=== PATIENT | female | born 1940 | race Caucasian/White ===

== ENCOUNTER 2016-05-06 12:14 | Outpatient (CLI) | payer MEDICARE, OTHER | END 2016-05-06 12:15 | disposition home or self-care (01) | DX: N64.52 Nipple discharge (principal) ==

== ENCOUNTER 2016-06-14 21:04 | Emergency (ER) | payer MEDICARE, OTHER | END 2016-06-14 23:38 | disposition home or self-care (01) | DX: J20.9 Acute bronchitis, unspecified (principal); I10 Essential (primary) hypertension ==

== ENCOUNTER 2016-06-15 23:54 | Emergency (ER) | payer MEDICARE, OTHER ==
[2016-06-16] MEDS ORDERED: LEVALBUTEROL 1.25 MG INH STA (00:22)
[2016-06-16] MEDS ORDERED: BENZONATATE 100 MG CAPSULE PO STA (00:22)
[2016-06-16] MEDS ORDERED: BENZONATATE 100 MG CAPSULE PO ONE (00:25)
[2016-06-16] MEDS ORDERED: LEVALBUTEROL 1.25 MG INH ONE (00:29)
== END 2016-06-16 01:31 | disposition home or self-care (01) ==
DX: J20.9 Acute bronchitis, unspecified (principal); T48.6X5A Adverse effect of antiasthmatics, initial encounter; R00.0 Tachycardia, unspecified; I10 Essential (primary) hypertension
CPT/HCPCS: 93005; 94640; 99283; A9270

== ENCOUNTER 2016-06-23 11:30 | Outpatient (CLI) | payer MEDICARE, OTHER | END 2016-06-23 11:31 | disposition home or self-care (01) | DX: B35.1 Tinea unguium (principal) ==

== ENCOUNTER 2016-07-07 11:22 | Outpatient (CLI) | payer MEDICARE, OTHER | END 2016-07-07 11:23 | disposition home or self-care (01) | DX: M25.511 Pain in right shoulder (principal); M19.011 Primary osteoarthritis, right shoulder ==

== ENCOUNTER 2016-10-20 05:35 | Emergency (ER) | payer MEDICARE, OTHER ==
[2016-10-20] MEDS ORDERED: SODIUM CHLORIDE 0.9% 1,000 ML IV ONE (05:51)
[2016-10-20] MEDS ORDERED: IOPAMIDOL-300 100 ML VIAL IVP ONE (07:47)
== END 2016-10-20 09:59 | disposition home or self-care (01) ==
DX: K02.9 Dental caries, unspecified (principal); R19.7 Diarrhea, unspecified; R10.84 Generalized abdominal pain; I10 Essential (primary) hypertension; E78.00 Pure hypercholesterolemia, unspecified; M19.90 Unspecified osteoarthritis, unspecified site
CPT/HCPCS: 36415; 74177; 80053; 81003; 83605; 83690; 85025; 85610; 85730; 87045; 87046; 87493; 99283; 99284; Q9967

== ENCOUNTER 2016-12-16 08:22 | Outpatient (CLI) | payer MEDICARE, OTHER ==
--- NOTE | 2016-12-16 12:54 | Ultrasound Report ---
MESENTERIC ARTERIAL DUPLEX: 12/16/2016 CLINICAL INDICATION: Bloody diarrhea. TECHNIQUE: Real-time sonographic vascular imaging was performed by the asset management lead through the mesenteric arteries utilizing both color-flow and Doppler flow analysis. Multiple ambulatory service representative static images were saved for review. PROX AORTA 99 cm/s CELIAC AXIS Origin:129 cm/s HEPATIC ARTERY 106 cm/s Prox: 144 cm/s SPLENIC ARTERY 147 cm/s Mid: 164 cm/s Dist: 131 cm/s SMA Origin: 158 cm/s JESSIE Origin: 138 cm/s Prox: 268 cm/s Prox: 173 cm/s Mid: 159 cm/s Mid: 117 cm/s Dist: 145 cm/s Dist: NOT SEEN cm/s FINDINGS: The abdominal aorta is normal in caliber proximally. The celiac, superior mesenteric, and inferior mesenteric arteries are patent. Velocities are normal. Waveforms appear unremarkable. No hemodynamically significant stenosis is appreciated. IMPRESSION: NO EVIDENCE OF MESENTERIC ARTERY STENOSIS OR OCCLUSION. MTDD
== END 2016-12-16 08:23 | disposition home or self-care (01) ==
LOC: DI 08:22
PROVIDERS: ATTEND Physician Assistant
DX: R93.8 Abnormal findings on diagnostic imaging of other specified body structures (principal); R19.7 Diarrhea, unspecified; K92.1 Melena
CPT/HCPCS: 93975

== ENCOUNTER 2016-12-17 13:26 | Day surgery (SDC) | payer MEDICARE, OTHER ==
[2016-12-17] MEDS ORDERED: LACTATED RINGERS 1,000 ML IV ONE (13:45)
[2016-12-17] MEDS ORDERED: LIDOCAINE-MPF 2% 5 ML VIAL IM ONE (15:30)
[2016-12-17] MEDS ORDERED: MIDAZOLAM 2 MG/2 ML VIAL IVP ONE (15:30)
[2016-12-17 16:46] VITALS: BP 128/64
== END 2016-12-17 13:27 | disposition home or self-care (01) ==
LOC: SDS 13:26
PROVIDERS: ATTEND Internal Medicine
PROC: 0DBE8ZX Excision of Large Intestine, Via Natural or Artificial Opening Endoscopic, Diagnostic (ICD-10-PCS; 2016-12-17)
PROC: 0DBK8ZX Excision of Ascending Colon, Via Natural or Artificial Opening Endoscopic, Diagnostic (ICD-10-PCS; principal; 2016-12-17 14:30)
DX: D12.0 Benign neoplasm of cecum (principal); D12.2 Benign neoplasm of ascending colon; D12.3 Benign neoplasm of transverse colon; K57.30 Diverticulosis of large intestine without perforation or abscess without bleeding; K64.8 Other hemorrhoids
CPT/HCPCS: 45380; 45385; J7120

== ENCOUNTER 2017-05-26 12:34 | Outpatient (CLI) | payer MEDICARE, OTHER | END 2017-05-26 12:35 | disposition home or self-care (01) | LOC: DI 12:34 | PROVIDERS: ATTEND Family Medicine | DX: Z53.9 Procedure and treatment not carried out, unspecified reason (principal) ==

== ENCOUNTER 2017-06-01 16:24 | Outpatient (CLI) | payer MEDICARE, OTHER ==
[2017-06-01 19:11] LABS: BASOPHILS % (AUTO) 0.6 %; EOSINOPHILS # (AUTO) 0.1 10^3/uL (0.0-0.7); EOSINOPHILS % (AUTO) 1.8 %; HGB - HEMOGLOBIN 13.1 g/dL (12.0-16.0); LYMPHOCYTES # (AUTO) 1.9 10^3/uL (1.5-3.5); LYMPHOCYTES % (AUTO) 27.5 %; MEAN CORPUSCULAR HEMOGLOBIN 31.9 pg (27.0-31.0); MEAN CORPUSCULAR VOLUME 96.7 fL (81.0-99.0); MEAN PLATELET VOLUME 8.8 fL (7.9-10.8); MONOCYTES # (AUTO) 0.5 10^3/uL (0.0-1.0); MONOCYTES % (AUTO) 7.6 %; NEUTROPHILS # (AUTO) 4.3 10^3/uL (1.5-6.6); NEUTROPHILS % (AUTO) 62.5 %; PLT - PLATELET COUNT 238 10^3/uL (130-450); RED CELL DISTRIBUTION WIDTH 13.3 % (12.0-15.0); WHITE BLOOD COUNT 6.9 x10^3/uL (4.8-10.8)
[2017-06-01 19:51] LABS: ALBUMIN 4.3 g/dL (3.2-5.5); ALBUMIN/GLOBULIN RATIO 1.3 (1.0-2.2); ALKALINE PHOSPHATASE 47 IU/L (42-121); ALT ALANINE AMINOTRANSFERASE 19 IU/L (10-60); AST ASPARTATE AMINOTRANSFERASE 22 IU/L (10-42); BILIRUBIN,TOTAL 0.5 mg/dL (0.2-1.0); BUN - BLOOD UREA NITROGEN 20 mg/dL (6-20); CALCIUM 8.9 mg/dL (8.5-10.3); CARBON DIOXIDE - CO2 27 mmol/L (21-32); CHLORIDE 102 mmol/L (101-111); CHOL/HDL RATIO 2.5 (<4.4); CHOLESTEROL 171 mg/dL; CREATININE 0.9 mg/dL (0.4-1.0); GFR - MDRD 61 (>89); GLUCOSE 99 mg/dL (70-100); HDL CHOLESTEROL 69 mg/dL; LDL CHOLESTEROL,CALCULATED 82 mg/dL; LDL/HDL RATIO 1.2 (<4.4); SODIUM 138 mmol/L (135-145); TOTAL PROTEIN 7.6 g/dL (6.7-8.2); VLDL CHOLESTEROL 20 mg/dL
== END 2017-06-01 16:25 | disposition home or self-care (01) ==
LOC: LAB.WCP 16:24
PROVIDERS: ATTEND Family Medicine
DX: N95.8 Other specified menopausal and perimenopausal disorders (principal); E78.5 Hyperlipidemia, unspecified; N64.52 Nipple discharge
CPT/HCPCS: 36415; 80053; 80061; 83721; 84146; 85025

== ENCOUNTER 2017-06-17 12:57 | Outpatient (CLI) | payer MEDICARE, OTHER ==
--- NOTE | 2017-06-17 16:24 | Mammography Report ---
DIGITAL DIAGNOSTIC BILATERAL MAMMOGRAM: 06/17/2017 CLINICAL INDICATION: Intermittent spontaneous clear discharge from right nipple. COMPARISON: 05/06/2016, 01/25/2016, 01/23/2015, 12/28/2013, 12/31/2012, 12/19/2011, 12/11/2010, 12/03/2009. TECHNIQUE: Bilateral CC and MLO views, right true lateral and spot magnification views. FINDINGS: The breasts demonstrate scattered fibroglandular densities bilaterally. A few punctate, typically benign calcifications are present. No suspicious masses, clustered microcalcifications, or regions of architectural distortion are identified. Specifically, no right retroareolar lesion is appreciated. IMPRESSION: BENIGN FINDINGS. RECOMMENDATION: ROUTINE ANNUAL SCREENING UNLESS OTHERWISE CLINICALLY INDICATED. BIRADS CATEGORY 2-BENIGN FINDINGS. STANDARD QUALIFYING STATEMENTS: 1. This examination was reviewed with the aid of Computer-Aided Detection (CAD). 2. A negative or benign imaging report should not delay biopsy if clinically suspicious findings are present. Consider surgical consultation if warranted. More than 5% of cancers are not identified by imaging. 3. Dense breasts may obscure an underlying neoplasm. TD: 06/17/2017 16:23
== END 2017-06-17 12:58 | disposition home or self-care (01) ==
LOC: DI 12:57
PROVIDERS: ATTEND Family Medicine
DX: N64.4 Mastodynia (principal); N64.52 Nipple discharge
CPT/HCPCS: 77066

== ENCOUNTER 2017-12-05 16:54 | Emergency (ER) | payer MEDICARE, OTHER ==
--- NOTE | 2017-12-05 17:35 | XRAY Report ---
Procedure Date: 12/05/2017 Accession Number: [id number] / [id number] Procedure: XR - Chest 2 View X-Ray CPT Code: 93449 FULL RESULT: EXAM: CHEST RADIOGRAPHY EXAM DATE: 12/05/2017 05:12 PM. CLINICAL HISTORY: Productive cough for 5 days. Fever. COMPARISON: CHEST 2 VIEW PA/LAT 06/14/2016. TECHNIQUE: 2 views. FINDINGS: Lungs/Pleura: No focal opacities evident. No pleural effusion. No pneumothorax. Normal volumes. Mediastinum: Heart and mediastinal contours are unremarkable. Other: No fractures identified. IMPRESSION: Normal 2-view chest radiography. RADIA
[2017-12-05] MEDS ORDERED: IPRATROPIUM/ALBUTEROL 3 ML NEB INH STA (17:49)
[2017-12-05] MEDS ORDERED: BENZONATATE 100 MG CAPSULE PO STA (17:50)
[2017-12-05] MEDS ORDERED: predniSONE 20 MG TABLET PO STA (17:50)
[2017-12-05] MEDS ORDERED: CETIRIZINE 10 MG TABLET PO STA (17:50)
[2017-12-05] MEDS ORDERED: IPRATROPIUM 0.2 MG/ML NEB INH STA (18:09)
[2017-12-05] MEDS ORDERED: LEVALBUTEROL 1.25 MG/3 ML NEB INH STA (18:09)
--- NOTE | 2017-12-05 18:33 | ED Physician Documentation ---
PD HPI URI - Stated complaint Stated Complaint: COUGH - Chief complaint Chief Complaint: Resp - History obtained from History obtained from: Patient, Family - History of Present Illness Timing - onset: How many days ago (5) Timing duration: Days (5) Timing details: Gradual onset Pain level max: 3 Pain level now: 3 Associated symptoms: Fever, Chills, Nasal congestion, Rhinorrhea, Dry cough, Dyspnea (wheezing) Contributing factors: Sick contact, Travel Improves by: Rest Worsened by: Activity, Breathing Similar symptoms before: Diagnosis (URI) Recently seen: Clinic (Patient saw her primary care provider and was placed on an inhaler as well as doxycycline. States she is not improving. 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 : None HEENT: None Psych: None Musculoskeletal: Osteoarthritis, Chronic back pain Derm: None - Past Surgical History Past Surgical History: Yes Ortho: Carpal Tunnel surgery - Present Medications Home Medications: Ambulatory Orders Medication Instructions Recorded Confirmed Cholecalciferol (Vitamin D3) 2,000 unit PO DAILY 10/20/16 12/16/16 [Vitamin D] Losartan [Cozaar] 50 mg PO DAILY 10/20/16 12/16/16 Simvastatin [Zocor] 10 mg PO DAILY 12/16/16 12/16/16 Benzonatate [Tessalon Perle] 100 - 200 mg PO TID PRN #30 capsule 12/05/17 Cetirizine HCl/Pseudoephedrine 1 each PO BID PRN #30 tab.er.12h 12/05/17 [Zyrtec-D Tablet] Doxycycline Monohydrate 100 mg PO BID 12/05/17 12/05/17 Levalbuterol [Xopenex] 1.25 mg INH TID 12/05/17 12/05/17 predniSONE [Prednisone] 40 mg PO DAILY #10 tablet 12/05/17 - Allergies Allergies/Adverse Reactions: Allergies Allergy/AdvReac Type Severity Reaction Status Date / Time Penicillins Allergy Hives Verified 12/05/17 16:59 Sulfa (Sulfonamide Allergy Rash Verified 12/05/17 16:59 Antibiotics) - Social History Does the pt smoke?: No Smoking Status: Never smoker Does the pt drink ETOH?: Yes Does the pt have substance abuse?: No - Immunizations Immunizations are current?: Yes - POLST Patient has POLST: No PD ED PE NORMAL - Vitals Vital signs reviewed: Yes - General General: Alert and oriented X 3, No acute distress - HEENT HEENT: PERRL, Ears normal, Moist mucous membranes, Other (Posterior oropharyngeal cobblestoning. No tonsillar exudates. Uvula midline. Clear rhinorrhea) - Neck Neck: Supple, no meningeal sign, No adenopathy - Cardiac Cardiac: RRR, Strong equal pulses - Respiratory Respiratory: No respiratory distress, Other (Wheezing bilaterally) - Abdomen Abdomen: Soft, Non tender, Non distended - Derm Derm: Warm and dry - Extremities Extremities: No edema, No calf tenderness / cord - Neuro Neuro: Alert and oriented X 3 - Psych Psych: Normal mood, Normal affect Results - Vitals Vitals: Vital Signs - 24 hr 12/05/17 12/05/17 12/05/17 16:56 18:16 18:47 Temperature 36.8 C Heart Rate 98 72 87 Respiratory 20 19 20 Rate Blood Pressure 162/78 H 134/67 H O2 Saturation 100 100 Oxygen O2 Source Room air - Rads (name of study) Chest x-ray Radiology: Prelim report reviewed, EMP read contemporaneously, See rad report ( No acute abnormality) PD MEDICAL DECISION MAKING - ED course Complexity details: reviewed results, re-evaluated patient, considered differential, d/w patient, d/w family ED course: Patient is a 77-year-old female with what appears to be an asthma exacerbation secondary to viral URI. No evidence of pneumonia clinically or on x-ray. Will place on steroids for home. Also place on decongestants. She feels better after Atrovent today and Xopenex here. She is very well-appearing, nontoxic. No respiratory distress. No hypoxia. Patient counseled regarding signs and symptoms for which I believe and urgent re-evaluation would be necessary. Patient with good understanding of and agreement to plan and is comfortable going home at this time This document was made in part using voice recognition software. While efforts are made to proofread this document, sound alike and grammatical errors may occur. - Sepsis Event Vital Signs: Vital Signs - 24 hr 12/05/17 12/05/17 12/05/17 16:56 18:16 18:47 Temperature 36.8 C Heart Rate 98 72 87 Respiratory 20 19 20 Rate Blood Pressure 162/78 H 134/67 H O2 Saturation 100 100 Oxygen O2 Source Room air Departure - Departure Disposition: 01 Home, Self Care Clinical Impression: URI, acute Condition: Good Instructions: ED URI Viral Follow-Up: Yuri Montero DO [Primary Care Provider] - Within 1 week Prescriptions: Benzonatate [Tessalon Perle] 100 - 200 mg PO TID PRN #30 capsule PRN Reason: Cough Cetirizine HCl/Pseudoephedrine [Zyrtec-D Tablet] 1 each PO BID PRN #30 tab.er.12h PRN Reason: Nasal Congestion predniSONE [Prednisone] 40 mg PO DAILY #10 tablet Comments: Return if you worsen. Follow-up with your doctor for further care. Continue your current medications. The average cough will last 2-3 weeks. Discharge Date/Time: 12/05/17 19:03
[2017-12-05 18:49] VITALS: BP 134/67
== END 2017-12-05 19:03 | disposition home or self-care (01) ==
LOC: ED 16:54
DX: J06.9 Acute upper respiratory infection, unspecified (principal); I10 Essential (primary) hypertension; E78.00 Pure hypercholesterolemia, unspecified
CPT/HCPCS: 71046; 94640; 94664; 99283; A9270; J7512

== ENCOUNTER 2017-12-06 23:19 | Emergency (ER) | payer MEDICARE, OTHER ==
[2017-12-06] MEDS ORDERED: LEVALBUTEROL 1.25 MG/3 ML NEB INH STA (23:43)
[2017-12-06] MEDS ORDERED: guaiFENesin/CODEINE 5 ML UDC PO STA (23:43)
[2017-12-06] MEDS ORDERED: PSEUDOEPHEDRINE 30 MG TABLET PO SCH (23:45)
[2017-12-07] MEDS ORDERED: LEVALBUTEROL 1.25 MG/3 ML NEB INH ONE (00:11)
[2017-12-07] MEDS ORDERED: LEVALBUTEROL 1.25 MG/3 ML NEB INH STA ×2 (00:23→00:42)
--- NOTE | 2017-12-07 00:25 | ED Physician Documentation ---
PD HPI DYSPNEA - Stated complaint Stated Complaint: COUGH,WHEEZING - Chief complaint Chief Complaint: Resp - History obtained from History obtained from: Patient - History of Present Illness Timing - onset: How many weeks ago (2) Timing - details: Gradual onset, Still present Inciting event(s): URI Improved by: O2, Inhaler/neb Associated symptoms: Cough, Wheezing Similar symptoms before: Work up / diagnostics, Treatment Recently seen: Clinic, Emergency Dept - Additional information Additional information: Patient is 77 year old female who is presenting to the emergency department for cough and wheezing. Patient symptoms started as an uri a few weeks ago after going on an around the [place] vacation. Patient was seen by her pmd who started the patient on doxy. Patient's symptoms persisted and patient came to the emergency department the day before. patient was diagnosed with bronchitis and given nebulizer treatments and outpatient prescriptions. patient reports that she was feeling a bit better yesterday but tonight she had significant post nasal drip and persistent, uncontrollable coughing. Review of Systems Constitutional: reports: Fever, Chills Eyes: reports: Reviewed and negative Ears: denies: Ear pain Nose: reports: Rhinorrhea / runny nose, Congestion, Sinus pressure / pain Throat: reports: Sore throat Respiratory: reports: Cough, Wheezing GI: denies: Nausea, Vomiting : reports: Reviewed and negative Skin: denies: Rash Musculoskeletal: reports: Reviewed and negative Neurologic: denies: Headache Immunocompromised: denies: Immunocompromised PD PAST MEDICAL HISTORY - Past Medical History Cardiovascular: Hypertension, High cholesterol Respiratory: None Endocrine/Autoimmune: None GI: None 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 HEENT: None Psych: None Musculoskeletal: Osteoarthritis, Chronic back pain Derm: None - Past Surgical History Past Surgical History: Yes Ortho: Carpal Tunnel surgery - Present Medications Home Medications: Ambulatory Orders Medication Instructions Recorded Confirmed Cholecalciferol (Vitamin D3) 2,000 unit PO DAILY 10/20/16 12/06/17 [Vitamin D] Losartan [Cozaar] 50 mg PO DAILY 10/20/16 12/06/17 Simvastatin [Zocor] 10 mg PO DAILY 12/16/16 12/06/17 Benzonatate [Tessalon Perle] 100 - 200 mg PO TID PRN #30 capsule 12/05/17 Cetirizine HCl/Pseudoephedrine 1 each PO BID PRN #30 tab.er.12h 12/05/17 [Zyrtec-D Tablet] Doxycycline Monohydrate 100 mg PO BID 12/05/17 12/06/17 Levalbuterol [Xopenex] 1.25 mg INH TID 12/05/17 12/06/17 predniSONE [Prednisone] 40 mg PO DAILY #10 tablet 12/05/17 12/06/17 Codeine Phosphate/Guaifenesin 10 ml PO DAILY PM #200 ml 12/07/17 [Guaifen-Codeine 100-10 mg/5 ml] Levalbuterol [Xopenex] 1.25 mg INH RTQ4H #30 neb 12/07/17 - Allergies Allergies/Adverse Reactions: Allergies Allergy/AdvReac Type Severity Reaction Status Date / Time Penicillins Allergy Hives Verified 12/06/17 23:28 Sulfa (Sulfonamide Allergy Rash Verified 12/06/17 23:28 Antibiotics) - Social History Does the pt smoke?: No Smoking Status: Never smoker Does the pt drink ETOH?: Yes Does the pt have substance abuse?: No - Immunizations Immunizations are current?: Yes - POLST Patient has POLST: No PD ED PE NORMAL - Vitals Vital signs reviewed: Yes - General General: Alert and oriented X 3 - HEENT HEENT: Atraumatic, PERRL - Neck Neck: Supple, no meningeal sign - Cardiac Cardiac: RRR - Derm Derm: Other (facial erythema) - Extremities Extremities: No deformity PD ED PE EXPANDED - General General: Alert, Other (persistently coughing) - HEENT HEENT: Nasal congestion, Rhinorrhea - Respiratory Respiratory: Labored, Wheezing, Right upper lobe, Right middle lobe, Right lower lobe, Left upper lobe, Left lower lobe Results - Vitals Vitals: Vital Signs - 24 hr 12/06/17 12/07/17 12/07/17 23:25 00:04 00:37 Temperature 36.7 C Heart Rate 100 79 91 Respiratory 19 22 20 Rate Blood Pressure 142/89 H 116/61 O2 Saturation 96 99 12/07/17 12/07/17 00:58 01:27 Temperature Heart Rate 88 94 Respiratory 20 18 Rate Blood Pressure 104/70 O2 Saturation 100 Oxygen O2 Source Room air PD MEDICAL DECISION MAKING - ED course Complexity details: reviewed old records, reviewed results, re-evaluated patient , considered differential, d/w patient, d/w family ED course: Patient was seen and examined at bedside. patient was persistently coughing and had wheezing in all boles. patient was already on steroids and was treated with xopenex, pseudophed and robitussin AC. Patient had moderate improvement but did require two additional nebulizer treatments. Upon discharge patient stated that she was feeling much better and was oxygenating well on room air. Patient did have some persistent wheezing but stated she felt well enough to go home. patient had a follow up appointment the next morning and was stable for discharge with outpatient follow up. - Sepsis Event Vital Signs: Vital Signs - 24 hr 12/06/17 12/07/17 12/07/17 23:25 00:04 00:37 Temperature 36.7 C Heart Rate 100 79 91 Respiratory 19 22 20 Rate Blood Pressure 142/89 H 116/61 O2 Saturation 96 99 12/07/17 12/07/17 00:58 01:27 Temperature Heart Rate 88 94 Respiratory 20 18 Rate Blood Pressure 104/70 O2 Saturation 100 Oxygen O2 Source Room air Departure - Departure Disposition: 01 Home, Self Care Clinical Impression: Bronchitis with bronchospasm Condition: Stable Instructions: ED Bronchitis Asthmatic Follow-Up: Yuri Montero DO [Primary Care Provider] - Tomorrow Prescriptions: Codeine Phosphate/Guaifenesin [Guaifen-Codeine 100-10 mg/5 ml] 10 ml PO DAILY PM #200 ml Levalbuterol [Xopenex] 1.25 mg INH RTQ4H #30 neb Comments: Your symptoms today are being caused by an exacerbation of your bronchitis. You have been prescribed nebulizer treatments which you will likely need to take every few hours. You should follow up with your doctor tomorrow. You should return to the emergency department for worsening symptoms. Discharge Date/Time: 12/07/17 01:42
[2017-12-07 01:28] VITALS: BP 104/70
== END 2017-12-07 01:42 | disposition home or self-care (01) ==
LOC: ED 23:19
DX: J40 Bronchitis, not specified as acute or chronic (principal); I10 Essential (primary) hypertension; E78.00 Pure hypercholesterolemia, unspecified
CPT/HCPCS: 94640; 99283; A9270

== ENCOUNTER 2018-05-24 09:59 | Outpatient (CLI) | payer MEDICARE, OTHER ==
[2018-05-24 10:13] LABS: BASOPHILS % (AUTO) 0.9 %; EOSINOPHILS # (AUTO) 0.1 10^3/uL (0.0-0.7); EOSINOPHILS % (AUTO) 1.8 %; HGB - HEMOGLOBIN 13.4 g/dL (12.0-16.0); LYMPHOCYTES # (AUTO) 1.5 10^3/uL (1.5-3.5); LYMPHOCYTES % (AUTO) 28.7 %; MEAN CORPUSCULAR HEMOGLOBIN 32.4 pg (27.0-31.0); MEAN CORPUSCULAR VOLUME 95.2 fL (81.0-99.0); MEAN PLATELET VOLUME 8.2 fL (7.9-10.8); MONOCYTES # (AUTO) 0.5 10^3/uL (0.0-1.0); MONOCYTES % (AUTO) 10.3 %; NEUTROPHILS % (AUTO) 58.3 %; PLT - PLATELET COUNT 211 10^3/uL (130-450); RED BLOOD COUNT 4.14 10^6/uL (4.20-5.40); WHITE BLOOD COUNT 5.2 x10^3/uL (4.8-10.8)
[2018-05-24 10:37] LABS: ALBUMIN 4.2 g/dL (3.2-5.5); ALBUMIN/GLOBULIN RATIO 1.2 (1.0-2.2); ALKALINE PHOSPHATASE 56 IU/L (42-121); ALT ALANINE AMINOTRANSFERASE 30 IU/L (10-60); AST ASPARTATE AMINOTRANSFERASE 29 IU/L (10-42); BILIRUBIN,TOTAL 0.7 mg/dL (0.2-1.0); BUN - BLOOD UREA NITROGEN 22 mg/dL (6-20); CALCIUM 8.9 mg/dL (8.5-10.3); CARBON DIOXIDE - CO2 28 mmol/L (21-32); CHLORIDE 102 mmol/L (101-111); CHOL/HDL RATIO 2.2 (<4.4); CHOLESTEROL 162 mg/dL; CREATININE 0.9 mg/dL (0.4-1.0); GFR - MDRD 61 (>89); GLUCOSE 108 mg/dL (70-100); HDL CHOLESTEROL 74 mg/dL; LDL CHOLESTEROL,CALCULATED 77 mg/dL; LIPASE 32 U/L (22-51); SODIUM 137 mmol/L (135-145); TOTAL PROTEIN 7.7 g/dL (6.7-8.2); VLDL CHOLESTEROL 11 mg/dL
== END 2018-05-24 10:00 | disposition home or self-care (01) ==
LOC: LAB 09:59
PROVIDERS: ATTEND Family Medicine
DX: R07.9 Chest pain, unspecified (principal); E78.5 Hyperlipidemia, unspecified
CPT/HCPCS: 36415; 80053; 80061; 83690; 83721; 84484; 85025

== ENCOUNTER 2018-06-09 10:59 | Outpatient (CLI) | payer MEDICARE, OTHER ==
--- NOTE | 2018-06-09 14:47 | CARDIAC PROCEDURE NOTE ---
DATE OF SERVICE: 06/09/2018 Physician: Carley Myers MD, [facility] INDICATION: Chest pain. CARDIAC RISK FACTORS 1. Advanced age. 2. Family history of heart disease. 3. Hypertension. 4. Elevated cholesterol. PROCEDURE: After signing informed consent, the patient underwent a Gregory protocol treadmill stress test with nuclear myocardial perfusion imaging. RESTING HEART RATE: 60. Peak heart rate: 125 (86% predicted maximum heart rate for age). RESTING BLOOD PRESSURE: 150/74. Peak blood pressure: 172/60; it susan further in the first minute of recovery to 193/62, then had normal resolution toward her baseline. The patient exercised for 4 minutes and 48 seconds on a Gregory protocol treadmill stress test. She achieved a peak heart rate of 125 (86% PMHR) and 6.8 METS. The patient had mild shortness of breath at stage 1 and moderate shortness of breath at peak. Oxygen saturation was 99% on room air at peak. The patient had no complaints of upper chest pain. BASELINE EKG: Normal sinus rhythm, LVH voltage. EKG AT PEAK: No ischemic changes by EKG criteria, are PVCs were seen in recovery. SUMMARY 1. Poorly controlled blood pressure and LVH is seen by resting EKG. 2. No ischemic changes by EKG criteria on this Gregory protocol treadmill stress test at an adequate achieved heart rate. 3. Nuclear images reported separately. cc: Yuri Montero DO TD: 06/09/2018 14:13 MTDD
--- NOTE | 2018-06-09 16:54 | Nuclear Medicine Report ---
Reason: CHEST PAIN Procedure Date: 06/09/2018 Accession Number: [id number] / [id number] Procedure: NM - Myocardial Perfusion STR/RST CPT Code: FULL RESULT: EXAM: SINGLE-ISOTOPE EXERCISE STRESS TEST. SINGLE-ISOTOPE AND ONE-DAY REST/STRESS MYOCARDIAL PERFUSION SCANS WITH TOMOGRAPHIC IMAGING, QUANTITATIVE ANALYSIS, WALL MOTION ANALYSIS AND CALCULATION OF EJECTION FRACTION. EXAM DATE: 06/09/2018 03:27 PM. CLINICAL HISTORY: CHEST PAIN. COMPARISON: None available. TECHNIQUE: A rest myocardial perfusion scan was done with tomography after the intravenous administration of 10 mCi Tc-99m sestamibi. After an appropriate delay, a treadmill exercise stress was performed according to department protocol. The patient exercised for 4 minutes and 48 seconds. The maximum heart rate was 125 bpm, which was 86% of the maximum predicted heart rate of 144 bpm. At approximately peak heart rate, 43 mCi of Tc-99m sestamibi was injected for stress myocardial perfusion scan. Motion correction was applied when appropriate. Gated tomographic images were obtained for wall motion analysis and computation of left ventricular ejection fraction. FINDINGS: On visual analysis, there is a mild fixed defect in inferior wall. No convincing reversible perfusion defects. Computer analysis: Summed stress score 6 Summed rest score 0 Summed difference score 6 Wall motion analysis demonstrates no focal wall motion abnormality The left ventricular end-diastolic volume is 49 cc. The left ventricular end-systolic volume is 3 cc. The left ventricular ejection fraction is calculated to be 94%. IMPRESSION: 1. On visual analysis, there is a mild fixed inferior wall perfusion defect. No convincing reversible perfusion defects. 2. Normal left ventricular ejection fraction of >65%. 3. Normal segmental and global wall motion. 4. Normal left ventricular cavity size, no change with stress. 5. Based on computer analysis, mildly abnormal study with moderate ischemia. The areas of computer detected ischemia are not appreciated on visual analysis and are believed to be an artifact related to image processing. RADIA
== END 2018-06-09 11:00 | disposition home or self-care (01) ==
LOC: DI 10:59
PROVIDERS: ATTEND Family Medicine
DX: R07.9 Chest pain, unspecified (principal); I51.7 Cardiomegaly
CPT/HCPCS: 78452; 93016; 93017; 93018; A9500

== ENCOUNTER 2018-06-25 13:52 | Outpatient (CLI) | payer MEDICARE, OTHER | END 2018-06-25 13:53 | disposition home or self-care (01) | LOC: DI 13:52 | PROVIDERS: ATTEND Family Medicine | DX: R01.1 Cardiac murmur, unspecified (principal) | CPT/HCPCS: 93306 ==

== ENCOUNTER 2018-08-04 16:29 | Outpatient (CLI) | payer MEDICARE, OTHER ==
--- NOTE | 2018-08-05 08:34 | Mammography Report ---
Reason: ANNUAL SCREENING Procedure Date: 08/04/2018 Accession Number: [id number] / [id number] Procedure: SATINDER - Screening Mammo w/Melchor CPT Code: FULL RESULT: EXAM: Screening Mammo w/Melchor DATE: 08/04/2018 5:01 PM CLINICAL HISTORY: Screening examination. TECHNIQUE: (B) - Bilateral CC and MLO views were obtained. COMPARISON: 10/20/2016 PARENCHYMAL PATTERN: (A) - The breasts demonstrate scattered fibroglandular densities bilaterally. FINDINGS: There are no suspicious masses, calcifications, or areas of distortion. IMPRESSION: Negative examination. BI-RADS category 1. RECOMMENDATION: (ANNUAL) - Recommend routine annual screening mammography. BI-RADS CATEGORY: (1) - Negative. STANDARD QUALIFYING STATEMENTS: 1. This examination was not reviewed with the aid of Computer-Aided Detection (CAD). 2. A negative or benign imaging report should not preclude biopsy if clinically suspicious findings are present. 3. Dense breasts may obscure an underlying neoplasm. 4. This examination was reviewed with the aid of 3D breast imaging (tomosynthesis).
== END 2018-08-04 16:30 | disposition home or self-care (01) ==
LOC: DI 16:29
DX: Z12.31 Encounter for screening mammogram for malignant neoplasm of breast (principal)
CPT/HCPCS: 77063; 77067

== ENCOUNTER 2019-09-02 20:52 | Emergency (ER) | payer MEDICARE, OTHER ==
[2019-09-02] MEDS ORDERED: ONDANSETRON ODT 4 MG TABLET TL STA (21:15)
--- NOTE | 2019-09-02 21:16 | ED Physician Documentation ---
PD HPI ABD PAIN - Stated complaint Stated Complaint: BLOODY DIARRHEA - Chief complaint Chief Complaint: Abd Pain - History obtained from History obtained from: Patient - History of Present Illness Timing - onset: Other (Pretty healthy 79-year-old woman with history of diverticulitis x1 developed lower abdominal cramping with mild nausea today with several episodes of diarrhea that became bloody. This is similar to prior episode of diverticulitis. She had a subsequent colonoscopy without other significant abnormalities except for some polyps. No fevers. No recent travel. No recent antibiotic use. No sick contacts.) Review of Systems Constitutional: denies: Fever, Chills Nose: reports: Reviewed and negative Throat: reports: Reviewed and negative GI: reports: Abdominal Pain, Nausea, Diarrhea. 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 HEENT: None Psych: None Musculoskeletal: Osteoarthritis, Chronic back pain Derm: None - Past Surgical History Past Surgical History: Yes Ortho: Carpal Tunnel surgery - Present Medications Home Medications: Ambulatory Orders Medication Instructions Recorded Confirmed Cholecalciferol (Vitamin D3) 2,000 unit PO DAILY 10/20/16 12/06/17 [Vitamin D] Losartan [Cozaar] 50 mg PO DAILY 10/20/16 12/06/17 Simvastatin [Zocor] 10 mg PO DAILY 12/16/16 12/06/17 Benzonatate [Tessalon Perle] 100 - 200 mg PO TID PRN #30 capsule 12/05/17 12/06/17 Cetirizine HCl/Pseudoephedrine 1 each PO BID PRN #30 tab.er.12h 12/05/17 12/06/17 [Zyrtec-D Tablet] Doxycycline Monohydrate 100 mg PO BID 12/05/17 12/06/17 Levalbuterol [Xopenex] 1.25 mg INH TID 12/05/17 12/06/17 predniSONE [Prednisone] 40 mg PO DAILY #10 tablet 12/05/17 12/06/17 Codeine Phosphate/Guaifenesin 10 ml PO DAILY PM #200 ml 12/07/17 [Guaifen-Codeine 100-10 mg/5 ml] Levalbuterol [Xopenex] 1.25 mg INH RTQ4H #30 neb 12/07/17 metroNIDAZOLE [Flagyl] 500 mg PO TID #21 tablet 09/02/19 - Allergies Allergies/Adverse Reactions: Allergies Allergy/AdvReac Type Severity Reaction Status Date / Time Penicillins Allergy Hives Verified 09/02/19 21:07 Sulfa (Sulfonamide Allergy Rash Verified 09/02/19 21:07 Antibiotics) - Social History Does the pt smoke?: No Smoking Status: Never smoker Does the pt drink ETOH?: Yes Does the pt have substance abuse?: No - Immunizations Immunizations are current?: Yes - POLST Patient has POLST: No PD ED PE NORMAL - Vitals Vital signs reviewed: Yes - General General: Alert and oriented X 3, No acute distress - Respiratory Respiratory: No respiratory distress, Clear bilaterally - Abdomen Abdomen: Other (Slightly hyperactive bowel tones, soft and nondistended, no tenderness.) - Neuro Neuro: Alert and oriented X 3, Normal speech Results - Vitals Vitals: Vital Signs - 24 hr 09/02/19 21:04 Temperature 36.4 C L Heart Rate 88 Respiratory 16 Rate Blood Pressure 133/72 H O2 Saturation 99 Oxygen O2 Source Room air - Labs Labs: Laboratory Tests 09/02/19 09/02/19 21:30 21:30 WBC 8.1 RBC 3.87 L Hgb 12.7 Hct 38.8 MCV 100.3 H MCH 32.8 H MCHC 32.7 RDW 13.1 Plt Count 222 MPV 9.8 Neut # (Auto) 6.3 Lymph # (Auto) 1.0 L [place] # (Auto) 0.6 Eos # (Auto) 0.1 Baso # (Auto) 0.1 Absolute Nucleated RBC 0.00 Nucleated RBC % 0.0 Sodium 134 L Potassium 3.9 Chloride 100 L Carbon Dioxide 22 Anion Gap 12.0 BUN 23 H Creatinine 1.1 H Estimated GFR (MDRD) 48 L Glucose 139 H Calcium 9.0 Total Bilirubin 1.0 AST 22 ALT 24 Alkaline Phosphatase 54 Total Protein 7.2 Albumin 4.2 Globulin 3.0 Albumin/Globulin Ratio 1.4 Lipase 31 PD MEDICAL DECISION MAKING - ED course ED course: 79-year-old woman with bloody diarrhea today. She had a similar episode a few years ago with colitis, and did well on Flagyl. Her labs are unremarkable today except for mild dehydration, no leukocytosis. She declined pain medications. She has an appointment with her emergency management program specialist next week and she is advised to keep it. Departure - Departure Disposition: 01 Home, Self Care Clinical Impression: Colitis Condition: Good Record reviewed to determine appropriate education?: Yes Instructions: ED Gastroenteritis Bacterial Prescriptions: metroNIDAZOLE [Flagyl] 500 mg PO TID #21 tablet Comments: If a bacterial pathogen is isolated from the stool culture we will call you in a couple days, until then do not drink alcohol while you are on the, they will make you sick. Follow-up with a emergency management program specialist next week as scheduled. Return for new or worsening symptoms.
[2019-09-02 21:39] LABS: BASOPHILS # (AUTO) 0.1 10^3/uL (0.0-0.1); BASOPHILS % (AUTO) 0.6 %; EOSINOPHILS # (AUTO) 0.1 10^3/uL (0.0-0.7); EOSINOPHILS % (AUTO) 1.1 %; HGB - HEMOGLOBIN 12.7 g/dL (12.0-16.0); LYMPHOCYTES % (AUTO) 12.4 %; MEAN CORPUSCULAR HEMOGLOBIN 32.8 pg (27.0-31.0); MEAN CORPUSCULAR HGB CONC 32.7 g/dL (32.0-36.0); MEAN CORPUSCULAR VOLUME 100.3 fL (81.0-99.0); MEAN PLATELET VOLUME 9.8 fL (7.9-10.8); MONOCYTES # (AUTO) 0.6 10^3/uL (0.0-1.0); MONOCYTES % (AUTO) 7.6 %; NEUTROPHILS # (AUTO) 6.3 10^3/uL (1.5-6.6); NEUTROPHILS % (AUTO) 78.1 %; PLT - PLATELET COUNT 222 10^3/uL (130-450); RED BLOOD COUNT 3.87 10^6/uL (4.20-5.40); RED CELL DISTRIBUTION WIDTH 13.1 % (12.0-15.0); WHITE BLOOD COUNT 8.1 x10^3/uL (4.8-10.8)
[2019-09-02 22:05] LABS: ALBUMIN 4.2 g/dL (3.2-5.5); ALBUMIN/GLOBULIN RATIO 1.4 (1.0-2.2); CREATININE 1.1 mg/dL (0.4-1.0); TOTAL PROTEIN 7.2 g/dL (6.7-8.2)
[2019-09-02] MEDS ORDERED: metroNIDAZOLE 250 MG TABLET PO STA (22:13)
[2019-09-02] MEDS ORDERED: ONDANSETRON ODT 4 MG Prepack 2 TL STA (22:18)
[2019-09-02 22:36] VITALS: BP 130/72
== END 2019-09-02 22:25 | disposition home or self-care (01) ==
LOC: ED 20:52
DX: K52.9 Noninfective gastroenteritis and colitis, unspecified (principal); E86.0 Dehydration; I10 Essential (primary) hypertension; Z87.19 Personal history of other diseases of the digestive system
CPT/HCPCS: 36415; 80053; 83690; 85025; 87045; 87046; 99283; A9270; Q0162

== ENCOUNTER 2019-09-22 11:40 | Outpatient (CLI) | payer MEDICARE, OTHER ==
[2019-09-22] MEDS ORDERED: IOVERSOL 320 100 ML VIAL IVP ONE ×2 (11:48→14:11)
[2019-09-22] MEDS ORDERED: IOVERSOL 320 50 ML VIAL ONE (11:48)
[2019-09-22] MEDS ORDERED: IOVERSOL 320 50 ML VIAL PO ONE (14:11)
--- NOTE | 2019-09-22 15:32 | CT Report ---
Reason: ABD PAIN, LLQ Procedure Date: 09/22/2019 Accession Number: [id number] / [id number] Procedure: CT - Abdomen/Pelvis W CPT Code: Final Report FULL RESULT: PROCEDURE: Abdomen/Pelvis W INDICATIONS: ABD PAIN, LLQ CONTRAST: IV CONTRAST: Optiray 320 ml: 100 PO CONTRAST: Optiray 320 ml50 TECHNIQUE: After the administration of oral and intravenous contrast, 5 mm thick sections acquired from the diaphragms to the symphysis. 5 mm thick coronal and sagittal reformats were acquired. For radiation dose reduction, the following was used: automated exposure control, adjustment of mA and/or kV according to patient size. COMPARISON: CT abdomen/pelvis 10/20/2016. FINDINGS: Image quality: Excellent. ABDOMEN: Lung bases: Lung bases are clear. Heart size is normal. Solid organs: Liver and spleen are normal in size and enhancement. Gallbladder appears normal Biliary system is non dilated. Pancreas enhances normally. No adrenal nodules. Kidneys demonstrate normal size and enhancement, without hydronephrosis. Upper pole left renal cortical cyst again noted, water in density. Peritoneum and bowel: Bowel loops demonstrate normal wall thickness and caliber. No free fluid or air. Nodes and vessels: No retroperitoneal or mesenteric adenopathy by size criteria. Aorta and inferior vena cava are normal in size. Miscellaneous: No ventral hernias. PELVIS: Genitourinary: Bladder wall thickness is normal. Miscellaneous: No inguinal hernias or adenopathy. There is sigmoid diverticulosis but no acute diverticulitis. Note is made of a normal appendix at the right lower quadrant. Bones: No suspicious bony lesions. No vertebral body compression fractures. IMPRESSION: Sigmoid diverticulosis, but without acute diverticulitis. No adnexal pathology or reactive free fluid is found. Normal appendix identified at the right lower quadrant. Reviewed by: Zacarias Butler MD on 09/22/2019 3:31 PM PDT Approved by: Zacarias Butler MD on 09/22/2019 3:31 PM PDT Station ID: [id number]
== END 2019-09-22 11:41 | disposition home or self-care (01) ==
LOC: DI 11:40
PROVIDERS: ATTEND Family Medicine
DX: K57.30 Diverticulosis of large intestine without perforation or abscess without bleeding (principal)
CPT/HCPCS: 74177; Q9967

== ENCOUNTER 2019-10-04 14:09 | Outpatient (CLI) | payer MEDICARE, OTHER ==
[2019-10-04 18:35] LABS: BASOPHILS % (AUTO) 0.6 %; EOSINOPHILS # (AUTO) 0.1 10^3/uL (0.0-0.7); LYMPHOCYTES # (AUTO) 1.6 10^3/uL (1.5-3.5); LYMPHOCYTES % (AUTO) 21.7 %; MEAN CORPUSCULAR HEMOGLOBIN 31.5 pg (27.0-31.0); MEAN CORPUSCULAR HGB CONC 31.5 g/dL (32.0-36.0); MEAN PLATELET VOLUME 10.5 fL (7.9-10.8); MONOCYTES # (AUTO) 0.6 10^3/uL (0.0-1.0); MONOCYTES % (AUTO) 7.9 %; NEUTROPHILS % (AUTO) 68.5 %; PLT - PLATELET COUNT 246 10^3/uL (130-450); RED BLOOD COUNT 4.13 10^6/uL (4.20-5.40); RED CELL DISTRIBUTION WIDTH 13.4 % (12.0-15.0); WHITE BLOOD COUNT 7.3 x10^3/uL (4.8-10.8)
[2019-10-04 18:57] LABS: ALBUMIN 4.2 g/dL (3.2-5.5); ALBUMIN/GLOBULIN RATIO 1.4 (1.0-2.2); BILIRUBIN,TOTAL 0.8 mg/dL (0.2-1.0); CALCIUM 9.5 mg/dL (8.5-10.3); TOTAL PROTEIN 7.1 g/dL (6.7-8.2)
[2019-10-04 19:00] LABS: HB2 TOTAL 14.1 g/dL; HEMOGLOBIN A1C 0.58 g/dL; HEMOGLOBIN A1C % 5.9 % (4.6-6.2)
== END 2019-10-04 23:59 | disposition home or self-care (01) ==
LOC: LAB.WCP 14:09
PROVIDERS: ATTEND Family Medicine
DX: R73.01 Impaired fasting glucose (principal); I10 Essential (primary) hypertension
CPT/HCPCS: 36415; 80053; 83036; 85025

== ENCOUNTER 2019-10-12 08:00 | Outpatient (CLI) | payer MEDICARE, OTHER ==
[2019-10-12 13:00] LABS: CALCIUM 9.2 mg/dL (8.5-10.3)
== END 2019-10-12 23:59 | disposition home or self-care (01) ==
LOC: LAB.WCP 08:00
PROVIDERS: ATTEND Family Medicine
DX: E87.5 Hyperkalemia (principal)
CPT/HCPCS: 36415; 80048

== ENCOUNTER 2020-06-04 08:00 | Outpatient (CLI) | payer MEDICARE, OTHER ==
[2020-06-04 12:31] LABS: BASOPHILS % (AUTO) 0.6 %; EOSINOPHILS # (AUTO) 0.2 10^3/uL (0.0-0.7); EOSINOPHILS % (AUTO) 4.1 %; HGB - HEMOGLOBIN 13.3 g/dL (12.0-16.0); LYMPHOCYTES # (AUTO) 1.7 10^3/uL (1.5-3.5); LYMPHOCYTES % (AUTO) 34.3 %; MEAN CORPUSCULAR HEMOGLOBIN 32.9 pg (27.0-31.0); MEAN CORPUSCULAR HGB CONC 31.7 g/dL (32.0-36.0); MEAN CORPUSCULAR VOLUME 103.7 fL (81.0-99.0); MEAN PLATELET VOLUME 10.7 fL (7.9-10.8); MONOCYTES # (AUTO) 0.4 10^3/uL (0.0-1.0); MONOCYTES % (AUTO) 8.8 %; NEUTROPHILS # (AUTO) 2.6 10^3/uL (1.5-6.6); PLT - PLATELET COUNT 242 10^3/uL (130-450); RED BLOOD COUNT 4.04 10^6/uL (4.20-5.40); WHITE BLOOD COUNT 4.9 x10^3/uL (4.8-10.8)
[2020-06-04 12:40] LABS: HEMOGLOBIN A1c% 5.7 % (4.27-6.07)
[2020-06-04 12:51] LABS: ALBUMIN 4.4 g/dL (3.2-5.5); ALBUMIN/GLOBULIN RATIO 1.3 (1.0-2.2); ALKALINE PHOSPHATASE 51 IU/L (42-121); ALT ALANINE AMINOTRANSFERASE 26 IU/L (10-60); AST ASPARTATE AMINOTRANSFERASE 25 IU/L (10-42); BILIRUBIN,TOTAL 0.8 mg/dL (0.2-1.0); BUN - BLOOD UREA NITROGEN 23 mg/dL (6-20); CALCIUM 9.2 mg/dL (8.5-10.3); CARBON DIOXIDE - CO2 26 mmol/L (21-32); CHLORIDE 102 mmol/L (101-111); CHOL/HDL RATIO 2.6 (<4.4); CHOLESTEROL 191 mg/dL; GLUCOSE 110 mg/dL (70-100); HDL CHOLESTEROL 74 mg/dL; LDL CHOLESTEROL,CALCULATED 100 mg/dL; LDL/HDL RATIO 1.4 (<4.4); TOTAL PROTEIN 7.8 g/dL (6.7-8.2); VLDL CHOLESTEROL 17 mg/dL
== END 2020-06-04 23:59 | disposition home or self-care (01) ==
LOC: LAB.WCP 08:00
PROVIDERS: ATTEND Family Medicine
DX: R73.01 Impaired fasting glucose (principal); I10 Essential (primary) hypertension; E78.5 Hyperlipidemia, unspecified
CPT/HCPCS: 36415; 80053; 80061; 83036; 83721; 85025

== ENCOUNTER 2020-06-20 10:57 | Outpatient (CLI) | payer MEDICARE, OTHER ==
--- NOTE | 2020-06-20 12:45 | DEXA Report ---
PROCEDURE: Dexa Spine and/or Hip INDICATIONS: BONE DENSITY DISORDER TECHNIQUE: Dual energy x-ray absorptiometry (DXA) was performed on a [employer] System. Regions measur ed are the AP Spine, femoral neck, and if needed forearm. COMPARISON: None. FINDINGS: Lumbar Spine: Bone Mineral Density 1.099 g/cm/cm,T score -0.7, Left Femoral Neck: Bone Mineral Density 0.906 g/cm/cm, T score -0.8, (T score greater or equal to -1.0: NORMAL) (T score from -1.1 to -2.4: OSTEOPENIA) (T score less than or equal to -2.5 to: OSTEOPOROSIS) Impression: Normal Patients with diagnosis of osteoporosis or osteopenia should have regular bone mineral density assess ment. For those eligible for Medicare, routine testing is allowed once every 2 years. Testing frequ ency can be increased for patients who have rapidly progressing disease or for those who are receivin g medical therapy to restore bone mass. Reviewed by: Will Mackey MD on 06/20/2020 12:44 PM PST Approved by: Will Mackey MD on 06/20/2020 12:44 PM PST Station ID: [id number]
== END 2020-06-20 10:58 | disposition home or self-care (01) ==
LOC: DI 10:57
PROVIDERS: ATTEND Family Medicine
DX: M85.88 Other specified disorders of bone density and structure, other site (principal)

== ENCOUNTER 2020-09-20 08:00 | Outpatient (CLI) | payer MEDICARE, OTHER ==
[2020-09-26 17:38] LABS: H. PYLORIS ANTIGEN STL NEGATIVE (Negative)
== END 2020-09-20 23:59 | disposition home or self-care (01) ==
LOC: LAB.N 08:00
PROVIDERS: ATTEND Family Medicine
DX: R12 Heartburn (principal); K29.70 Gastritis, unspecified, without bleeding
CPT/HCPCS: 87338

== ENCOUNTER 2020-11-16 09:25 | Outpatient (CLI) | payer MEDICARE, OTHER ==
--- NOTE | 2020-11-19 14:22 | Mammography Report ---
BILATERAL DIGITAL SCREENING MAMMOGRAM 3D/2D: 11/16/2020 CLINICAL: Routine screening. Comparison is made to exams dated: 10/03/2019 mammogram, 08/04/2018 mammogram, 06/17/2017 mammogram, mammogram, and 01/25/2016 mammogram - Merged with [facility]. There are scattered fibro glandular elements in both breasts. No significant masses, calcifications, or other findings are seen in either breast. There has been no significant interval change. IMPRESSION: NEGATIVE There is no mammographic evidence of malignancy. A 1 year screening mammogram is recommended. This exam was interpreted at Station ID: [id number]. NOTE: For mammograms, a report in lay terms will be sent to the patient. Approximately 15% of breast malignancies will not be visualized mammographically. In the management of a palpable breast mass, a negative mammogram must not discourage biopsy of a clinically suspicious lesion. Electronically Signed By: Doug Mcnulty M.D. slc/penrad:11/16/2020 14:54:06 ACR BI-RADS Category 1: Negative 3341F PARENCHYMAL PATTERN: (A) - The breast(s) demonstrate(s) scattered fibroglandular densities. BI-RADS CATEGORY: (1) - 1 RECOMMENDATION: (ANNUAL) - Recommend routine annual screening mammography. [id number] 1 year screening LATERALITY: (B)
== END 2020-11-16 09:26 | disposition home or self-care (01) ==
LOC: DI 09:25
DX: Z12.31 Encounter for screening mammogram for malignant neoplasm of breast (principal)

== ENCOUNTER 2020-12-03 08:21 | Outpatient (CLI) | payer MEDICARE, OTHER ==
[2020-12-03 12:41] LABS: ALBUMIN 4.5 g/dL (3.2-5.5); ALBUMIN/GLOBULIN RATIO 1.3 (1.0-2.2); BILIRUBIN,TOTAL 0.7 mg/dL (0.2-1.0); CALCIUM 9.2 mg/dL (8.5-10.3); CREATININE 0.9 mg/dL (0.4-1.0); POTASSIUM 4.2 mmol/L (3.5-5.0); TOTAL PROTEIN 7.9 g/dL (6.7-8.2)
[2020-12-03 13:32] LABS: ESTIMATED AVERAGE GLUCOSE 120 mg/dL (70-100); HEMOGLOBIN A1c% 5.8 % (4.27-6.07)
[2020-12-03 18:07] LABS: BASOPHILS % (AUTO) 0.7 %; EOSINOPHILS # (AUTO) 0.2 10^3/uL (0.0-0.7); EOSINOPHILS % (AUTO) 3.5 %; HCT - HEMATOCRIT 42.4 % (37.0-47.0); HGB - HEMOGLOBIN 13.3 g/dL (12.0-16.0); LYMPHOCYTES # (AUTO) 1.8 10^3/uL (1.5-3.5); LYMPHOCYTES % (AUTO) 33.1 %; MEAN CORPUSCULAR HEMOGLOBIN 32.1 pg (27.0-31.0); MEAN CORPUSCULAR HGB CONC 31.4 g/dL (32.0-36.0); MEAN CORPUSCULAR VOLUME 102.4 fL (81.0-99.0); MEAN PLATELET VOLUME 10.4 fL (7.9-10.8); MONOCYTES # (AUTO) 0.5 10^3/uL (0.0-1.0); MONOCYTES % (AUTO) 8.9 %; NEUTROPHILS # (AUTO) 2.9 10^3/uL (1.5-6.6); NEUTROPHILS % (AUTO) 53.4 %; PLT - PLATELET COUNT 240 10^3/uL (130-450); RED BLOOD COUNT 4.14 10^6/uL (4.20-5.40); RED CELL DISTRIBUTION WIDTH 13.7 % (12.0-15.0); WHITE BLOOD COUNT 5.4 x10^3/uL (4.8-10.8)
== END 2020-12-03 08:22 | disposition home or self-care (01) ==
LOC: LAB.N 08:21
PROVIDERS: ATTEND Family Medicine
DX: Z01.84 Encounter for antibody response examination (principal); K29.70 Gastritis, unspecified, without bleeding; R73.01 Impaired fasting glucose
CPT/HCPCS: 36415; 80053; 83036; 85025; 86769

== ENCOUNTER 2020-12-03 08:27 | Outpatient (CLI) | payer MEDICARE, OTHER ==
--- NOTE | 2020-12-03 16:46 | XRAY Report ---
PROCEDURE: Cervical Spine 2 View INDICATIONS: NECK PX TECHNIQUE: 2 view(s) of the cervical spine were acquired. COMPARISON: None. FINDINGS: Bones: No fractures or dislocations to the T1 level. No suspicious bony lesions. Patient status post C5-C7 discectomy and interbody osseous fusion. There is mild, approximately 2-3 mm of C4-C5 anteroli sthesis. [id number] C4-C5 degenerative disc disease. Mild C3-C4 and C7-T1 degenerative disc dis ease. Moderate bilateral C3-C4, C4-C5 and C7-T1 facet arthropathy. Mild bilateral C2-C3, C5-C6 and C6 on C7 facet arthropathy. Soft tissues: No prevertebral soft tissue swelling. IMPRESSION: 1. Status post C5-C7 fusion. 2. Multilevel degenerative disc disease. 3. Multilevel facet arthropathy. 4. No fracture. No acute osseous lesion. If there is continued clinical concern for pathology, then M RI should be considered for further evaluation. Reviewed by: Marilyn Luna MD, PhD on 12/03/2020 4:45 PM PDT Approved by: Marilyn Luna MD, PhD on 12/03/2020 4:45 PM PDT Station ID: [id number]
== END 2020-12-03 08:28 | disposition home or self-care (01) ==
LOC: DI.N 08:27
PROVIDERS: ATTEND Family Medicine
DX: Z98.1 Arthrodesis status (principal); M47.812 Spondylosis without myelopathy or radiculopathy, cervical region; M50.01 Cervical disc disorder with myelopathy, high cervical region; M50.11 Cervical disc disorder with radiculopathy, high cervical region; Z01.84 Encounter for antibody response examination; K29.70 Gastritis, unspecified, without bleeding; R73.01 Impaired fasting glucose
CPT/HCPCS: 36415; 80053; 83036; 85025; 86769

== ENCOUNTER 2020-12-10 20:20 | Emergency (ER) | payer MEDICARE, OTHER ==
[2020-12-10 20:29] VITALS: BP 121/55
--- NOTE | 2020-12-10 20:57 | ED Physician Documentation ---
PD HPI OPHTHO - Stated complaint Stated Complaint: LT EYE PAIN - Chief complaint Chief Complaint: Heent - History obtained from History obtained from: Patient - Additional information Additional information: 80-year-old woman had a intraocular injection earlier today by an senior oracle adf developer. Its not the first time she has had this injection, she has it every 4 months but had a little early this time. She describes retinal blood vessel overgrowth so presume this was some sort of anti-VEGF drug but she does not know the name. Few hours after getting the injection she developed severe grittiness in the left eye and some mild photophobia. No change in vision. Review of Systems Constitutional: reports: Reviewed and negative Eyes: reports: Photophobia, Irritation. denies: Loss of vision, Decreased vision PD PAST MEDICAL HISTORY - Past Medical History Cardiovascular: Hypertension, High cholesterol Respiratory: None Endocrine/Autoimmune: None GI: None ASSOCIATE ATTORNEY: None : None HEENT: Macular degeneration Psych: None Musculoskeletal: Osteoarthritis, Chronic back pain Derm: None - Past Surgical History Past Surgical History: Yes Ortho: Carpal Tunnel surgery - Present Medications Home Medications: Ambulatory Orders Medication Instructions Recorded Confirmed Cholecalciferol (Vitamin D3) 2,000 unit PO DAILY 10/20/16 12/06/17 [Vitamin D] Losartan [Cozaar] 50 mg PO DAILY 10/20/16 12/06/17 Simvastatin [Zocor] 10 mg PO DAILY 12/16/16 12/06/17 Benzonatate [Tessalon Perle] 100 - 200 mg PO TID PRN #30 capsule 12/05/17 Cetirizine HCl/Pseudoephedrine 1 each PO BID PRN #30 tab.er.12h 12/05/17 12/06/17 [Zyrtec-D Tablet] Doxycycline Monohydrate 100 mg PO BID 12/05/17 12/06/17 Levalbuterol [Xopenex] 1.25 mg INH TID 12/05/17 12/06/17 predniSONE [Prednisone] 40 mg PO DAILY #10 tablet 12/05/17 12/06/17 Codeine Phosphate/Guaifenesin 10 ml PO DAILY PM #200 ml 12/07/17 [Guaifen-Codeine 100-10 mg/5 ml] Levalbuterol [Xopenex] 1.25 mg INH RTQ4H #30 neb 12/07/17 Ondansetron Odt [Zofran] 4 mg TL Q6H PRN #10 tablet 09/02/19 metroNIDAZOLE [Flagyl] 500 mg PO TID #21 tablet 09/02/19 - Allergies Allergies/Adverse Reactions: Allergies Allergy/AdvReac Type Severity Reaction Status Date / Time Penicillins Allergy Hives Verified 12/10/20 20:29 Sulfa (Sulfonamide Allergy Rash Verified 12/10/20 20:29 Antibiotics) - Social History Does the pt smoke?: No Smoking Status: Never smoker Does the pt drink ETOH?: Yes ETOH Use: Wine Does the pt have substance abuse?: No - Immunizations Immunizations are current?: Yes - POLST Patient has POLST: No PD ED PE NORMAL - Vitals Vital signs reviewed: Yes - General General: Alert and oriented X 3, No acute distress - HEENT HEENT: PERRL, EOMI, Other (Mild conjunctivitis of the left eye, otherwise no overt abnormalities. Had complete relief with proparacaine.) - Neuro Neuro: Alert and oriented X 3, Normal speech Results - Vitals Vitals: Vital Signs - 24 hr 12/10/20 20:23 Temperature 36.3 C L Heart Rate 67 Respiratory 18 Rate Blood Pressure 121/55 L O2 Saturation 99 Oxygen O2 Source Room air PD MEDICAL DECISION MAKING - ED course ED course: 80-year-old woman presents with left eye irritation after an antiveg F inhibitor injection today. She was pain-free after proparacaine. Case discussed by phone with Dr. Thompson on-call for her retinal surgeon who recommends conservative care only with eye lubrication and oral NSAIDs. Departure - Departure Disposition: 01 Home, Self Care Clinical Impression: Pain in eye Qualifiers: Laterality: left Qualified Code(s): H57.12 - Ocular pain, left eye Condition: Good Record reviewed to determine appropriate education?: Yes Comments: Call your retinal surgeon tomorrow if symptoms are persistent. Otherwise follow-up as routine.
[2020-12-10] MEDS ORDERED: IBUPROFEN 600 MG TABLET PO STA (21:12)
== END 2020-12-10 21:24 | disposition home or self-care (01) ==
LOC: ED 20:20
DX: H57.12 Ocular pain, left eye (principal)
CPT/HCPCS: 99282; A9270

== ENCOUNTER 2021-03-05 10:27 | Outpatient (CLI) | payer MEDICARE, OTHER ==
--- NOTE | 2021-03-05 11:59 | XRAY Report ---
PROCEDURE: Hip w/Pelvis 1V RT INDICATIONS: PAIN IN RIGHT HIP AND LOW BACK PAIN TECHNIQUE: AP pelvis with lateral view(s) of the right hip(s). COMPARISON: None. FINDINGS: No acute fracture. Lower lumbar spondylosis and facet arthropathy. [id number] bilateral hip eladio nt degeneration. Scattered subchondral sclerosis and spurring. Presumed calcified fibroid projects in the central pelvis. IMPRESSION: Mild/moderate bilateral hip joint degeneration Lower lumbar spondylosis Reviewed by: Will Mackey MD on 03/05/2021 11:58 AM PST Approved by: Will Mackey MD on 03/05/2021 11:58 AM PST Station ID: [id number]
--- NOTE | 2021-03-05 16:46 | XRAY Report ---
PROCEDURE: Lumbar Spine 2 View INDICATIONS: LOW BACK PX TECHNIQUE: 2 views of the lumbar spine were acquired. COMPARISON: None. FINDINGS: Bones: 5 [id number]-iwu-lwewhuv vertebrae are present. There is normal bony alignment trace L3-L4 degenera tive anterolisthesis. Noted throughout the lumbar spine. Moderate L3-L4 L4-L5 and L5-S1 facet arthrop athy. Mild L2-L3 facet arthropathy. Soft tissues: Overlying bowel gas pattern is normal. 2.8 cm coarse calcification projects over the m id pelvis likely related to uterine fibroid. IMPRESSION: 1. Multilevel degenerative disc disease. 2. Multilevel facet arthropathy. 3. No fracture. No acute osseous lesion. If there is continued clinical concern for pathology, then M RI should be considered for further evaluation. Reviewed by: Marilyn Luna MD, PhD on 03/05/2021 4:44 PM PST Approved by: Marilyn Luna MD, PhD on 03/05/2021 4:44 PM PST Station ID: [id number]
== END 2021-03-05 10:28 | disposition home or self-care (01) ==
LOC: DI.N 10:27
PROVIDERS: ATTEND Nurse Practitioner
DX: M47.816 Spondylosis without myelopathy or radiculopathy, lumbar region (principal); M51.36 Other intervertebral disc degeneration, lumbar region; M16.0 Bilateral primary osteoarthritis of hip

== ENCOUNTER 2021-03-12 09:57 | Day surgery (SDC) | payer MEDICARE, OTHER ==
[2021-03-12] MEDS ORDERED: LACTATED RINGERS 1,000 ML IV ONE ×2 (10:33→11:19)
--- NOTE | 2021-03-12 10:50 | ANESTHESIA ---
Pre-Anesthesia VS, & Labs - Diagnosis gerd - Procedure EGD Vital Signs: Temp Pulse Resp BP Pulse Ox 36.3 C L 83 20 146/72 H 100 03/12/21 10:14 03/12/21 10:14 03/12/21 10:14 03/12/21 10:14 03/12/21 10:14 Height: 5 ft 9 in Weight (kg): 79 kg Body Mass Index: 25.7 BMI Classification: Overweight - NPO >8 hours - Is Patient ?: No Home Medications and Allergies Home Medications: Ambulatory Orders Diclofenac Sodium [Voltaren Arthritis Pain] PRN 03/12/21 Fluticasone Propionate [Flovent Diskus] 1 spray JOHANNY BID 03/12/21 Spironolactone [Aldactone] 25 mg PO DAILY 03/12/21 Losartan [Cozaar] 50 mg PO DAILY 10/20/16 Simvastatin [Zocor] 10 mg PO DAILY 12/16/16 Levalbuterol [Xopenex] 1.25 mg INH TID 12/05/17 Diclofenac Sodium [Voltaren Arthritis Pain] PRN 03/12/21 Fluticasone Propionate [Flovent Diskus] 1 spray JOHANNY BID 03/12/21 Spironolactone [Aldactone] 25 mg PO DAILY 03/12/21 Allergies/Adverse Reactions: Allergies Allergy/AdvReac Type Severity Reaction Status Date / Time Penicillins Allergy Hives Verified 12/10/20 20:29 Sulfa (Sulfonamide Allergy Rash Verified 12/10/20 20:29 Antibiotics) Anes History & Medical History - Anesthetic History Anesthesia Complications: reports: No previous complications - Medical History Cardiovascular: reports: Hypertension, High cholesterol, Murmur Pulmonary: reports: Other Gastrointestinal: reports: GERD Urinary: reports: None Musculoskeletal: reports: Osteoarthritis Endocrine/Autoimmune: reports: None Blood Disorders: reports: None Skin: reports: Eczema, Rosacea Smoking Status: Never smoker History of Cancer?: No - Surgical History Orthopedic: reports: Carpal Tunnel surgery, Spine surgery (cervical) Exam General: Alert Dental: WNL Mouth Opening: Greater than 4 Fingerbreadths Neck Mobility: Reduced Mallampati classification: II Thyromental Distance: 4-6 cm Respiratory: Lungs clear Cardiovascular: Regular rate, Normal S1, Normal S2 (2/6 systolic murmur, patient states asymptomatic) Plan Anesthesia Type: Total IV Consent for Procedure(s) Verified and Reviewed: Yes Code Status: Attempt Resuscitation ASA classification: 2-Mild systemic disease Is this case an emergency?: No
[2021-03-12] MEDS ORDERED: LIDOCAINE-MPF 2% 5 ML VIAL ONE (10:52)
[2021-03-12] MEDS ORDERED: PROPOFOL 200 MG/20 ML VIAL IVP ONE (10:52)
[2021-03-12 11:48] VITALS: BP 111/60
--- NOTE | 2021-03-12 15:09 | ANESTHESIA POST OP EVALUATION ---
Anesthesia Post Eval - Post Anesthesia Eval Vitals: Last Vital Signs Temp 36.4 C L 03/12/21 11:47 Pulse 67 03/12/21 11:47 Resp 16 03/12/21 11:47 BP 111/60 03/12/21 11:47 Pulse Ox 100 03/12/21 11:47 CV Function Including HR & BP: Stable Pain Control: Satisfactory Nausea & Vomiting: Negative Mental Status: Baseline Respiratory Status: Airway Patent Hydration Status: Satisfactory Anesthesia Complications: None
== END 2021-03-12 09:58 | disposition home or self-care (01) ==
LOC: SDS 09:57
PROVIDERS: ATTEND Surgery
PROC: 0DB78ZX Excision of Stomach, Pylorus, Via Natural or Artificial Opening Endoscopic, Diagnostic (ICD-10-PCS; 2021-03-12)
PROC: 0DB58ZX Excision of Esophagus, Via Natural or Artificial Opening Endoscopic, Diagnostic (ICD-10-PCS; 2021-03-12)
PROC: 0DB48ZX Excision of Esophagogastric Junction, Via Natural or Artificial Opening Endoscopic, Diagnostic (ICD-10-PCS; 2021-03-12)
PROC: 0DB98ZX Excision of Duodenum, Via Natural or Artificial Opening Endoscopic, Diagnostic (ICD-10-PCS; principal; 2021-03-12 11:30)
DX: K21.9 Gastro-esophageal reflux disease without esophagitis (principal); K29.50 Unspecified chronic gastritis without bleeding; K44.9 Diaphragmatic hernia without obstruction or gangrene; K29.80 Duodenitis without bleeding; J45.909 Unspecified asthma, uncomplicated
CPT/HCPCS: 43239; J7120

== ENCOUNTER 2021-04-24 08:00 | Outpatient (CLI) | payer MEDICARE, OTHER ==
[2021-04-24 18:22] LABS: HGB - HEMOGLOBIN 13.6 g/dL (12.0-16.0); MEAN CORPUSCULAR HEMOGLOBIN 32.7 pg (27.0-31.0); MEAN CORPUSCULAR HGB CONC 32.4 g/dL (32.0-36.0); MEAN PLATELET VOLUME 10.6 fL (7.9-10.8); RED BLOOD COUNT 4.16 10^6/uL (4.20-5.40); RED CELL DISTRIBUTION WIDTH 13.5 % (12.0-15.0); WHITE BLOOD COUNT 5.9 x10^3/uL (4.8-10.8)
[2021-04-24 18:32] LABS: ALBUMIN 4.3 g/dL (3.2-5.5); ALBUMIN/GLOBULIN RATIO 1.2 (1.0-2.2); ALKALINE PHOSPHATASE 65 IU/L (42-121); ALT ALANINE AMINOTRANSFERASE 32 IU/L (10-60); AST ASPARTATE AMINOTRANSFERASE 29 IU/L (10-42); BILIRUBIN,TOTAL 0.7 mg/dL (0.2-1.0); BUN - BLOOD UREA NITROGEN 31 mg/dL (6-20); CALCIUM 9.6 mg/dL (8.5-10.3); CARBON DIOXIDE - CO2 27 mmol/L (21-32); CHLORIDE 100 mmol/L (101-111); CHOL/HDL RATIO 2.4 (<4.4); CHOLESTEROL 180 mg/dL; CREATININE 1.2 mg/dL (0.4-1.0); GFR - MDRD 43 (>89); GLUCOSE 109 mg/dL (70-100); HDL CHOLESTEROL 74 mg/dL; LDL CHOLESTEROL,CALCULATED 91 mg/dL; LDL/HDL RATIO 1.2 (<4.4); POTASSIUM 4.7 mmol/L (3.5-5.0); SODIUM 139 mmol/L (135-145); TOTAL PROTEIN 7.8 g/dL (6.7-8.2); TRIGLYCERIDES 75 mg/dL; VLDL CHOLESTEROL 15 mg/dL
[2021-04-24 20:02] LABS: ESTIMATED AVERAGE GLUCOSE 120 mg/dL (70-100); HEMOGLOBIN A1c% 5.8 % (4.27-6.07)
== END 2021-04-24 23:59 ==
LOC: LAB.WCP 08:00
PROVIDERS: ATTEND Family Medicine
DX: R06.09 Other forms of dyspnea (principal); E78.5 Hyperlipidemia, unspecified; R73.01 Impaired fasting glucose; Z20.822 Contact with and (suspected) exposure to COVID-19
CPT/HCPCS: 36415; 80053; 80061; 83036; 83880; 85027; U0004; 83721

== ENCOUNTER 2021-04-25 13:11 | Outpatient (CLI) | payer MEDICARE, OTHER ==
--- NOTE | 2021-04-25 13:36 | XRAY Report ---
PROCEDURE: Chest 2 View X-Ray INDICATIONS: DYSPNEA ON EXERTION TECHNIQUE: 2 view(s) of the chest. COMPARISON: December 05, 2017 FINDINGS: SUPPORT DEVICES: None. LUNGS/PLEURA: No focal consolidation, pleural effusion or space-occupying pneumothorax. MEDIASTINUM: The cardiomediastinal silhouette is within normal limits. BONES/SOFT TISSUES: No acute abnormality. IMPRESSION: 1.No acute cardiopulmonary abnormality. Reviewed by: Patrice Aguirre MD on 04/25/2021 1:34 PM [facility] Approved by: Patrice Aguirre MD on 04/25/2021 1:34 PM [facility] Station ID: [id number]
== END 2021-04-25 13:12 | disposition home or self-care (01) ==
LOC: DI 13:11
PROVIDERS: ATTEND Family Medicine
DX: R06.09 Other forms of dyspnea (principal)

== ENCOUNTER 2021-06-07 08:49 | Outpatient (CLI) | payer MEDICARE, OTHER | END 2021-06-07 08:50 | disposition home or self-care (01) | LOC: DI 08:49 | PROVIDERS: ATTEND Family Medicine | DX: R06.09 Other forms of dyspnea (principal) | CPT/HCPCS: 93306 ==

== ENCOUNTER 2021-10-09 08:00 | Outpatient (CLI) | payer MEDICARE, OTHER | END 2021-10-09 23:59 | disposition home or self-care (01) | LOC: LAB 08:00 | PROVIDERS: ATTEND Physician Assistant | DX: R05.9 Cough, unspecified (principal) | CPT/HCPCS: 87070 ==

== ENCOUNTER 2022-01-21 12:56 | Outpatient (CLI) | payer MEDICARE, OTHER ==
--- NOTE | 2022-01-22 10:15 | Ultrasound Report ---
LIMITED ULTRASOUND OF LEFT BREAST: 01/21/2022 CLINICAL: Left breast nipple lesion. Comparison is made to exams dated: 01/21/2022 mammogram, 11/16/2020 mammogram, 10/03/2019 mammogram, mammogram, 06/17/2017 mammogram, and 05/06/2016 mammogram - [facility]. Color flow and real-time ultrasound of the left breast retroareolar were performed. Rubin scale imag es of the real-time examination were reviewed. There is a 0.5 cm x 0.5 cm x 0.7 cm mass within the nipple skin of the left breast. This correlates as palpated and with area of clinical concern. IMPRESSION: BENIGN There is no sonographic evidence of breast fibroglandular tissue malignancy. There is a 0.5 cm x 0.5 cm x 0.7 cm mass within the nipple skin of the left breast. Clinical evaluati on and followup are recommended. Patient can return for repeat imaging if this area enlarges or if sh e experiences new symptoms, such as nipple inversion or discharge. This was discussed with the maame pollard. Return to annual mammogram screening schedule is recommended. This exam was interpreted at Station ID: [id number]. Electronically Signed By: Osmar Coelho M.D. lc/:01/21/2022 14:30:03 Ultrasound BI-RADS: 2 Benign BI-RADS CATEGORY: (2) - 2 Mammogram [id number] return to screening LATERALITY: (B)
--- NOTE | 2022-01-22 10:15 | Mammography Report ---
BILATERAL DIGITAL DIAGNOSTIC MAMMOGRAM 3D/2D: 01/21/2022 CLINICAL: Skin cysts/lesions 3 weeks ago, much better at time of exam. Comparison is made to exams dated: 11/16/2020 mammogram, 10/03/2019 mammogram, 08/04/2018 mammogram, mammogram, 05/06/2016 mammogram, and 01/25/2016 mammogram - Located within [facility]. There are scattered areas of fibroglandular density in both breasts (category b / 25%-50% glandular t issue). No significant masses, calcifications, or other findings are seen in either breast. IMPRESSION: INCOMPLETE: NEEDS ADDITIONAL IMAGING EVALUATION There is no abnormality seen in the left breast to correspond with the area of clinical concern on th e skin, however, ultrasound is recommended. Based on the Tyrer Cuzick model (a risk assessment model) the patients lifetime risk is 2.1% and her 10 year risk is 0.0%. According to the ACR, ACS, and NCCN guidelines, an annual breast MRI exam melina g with mammogram is recommended if the patients lifetime risk is 20% or greater. This exam was interpreted at Station ID: [id number]. NOTE: For mammograms, a report in lay terms will be sent to the patient. Approximately 15% of breast malignancies will not be visualized mammographically. In the management of a palpable breast mass, a negative mammogram must not discourage biopsy of a clinically suspicious lesion. Electronically Signed By: Osmar Coelho M.D. lc/:01/21/2022 14:25:21 ACR BI-RADS Category 0: Incomplete 3340F PARENCHYMAL PATTERN: (A) - The breast(s) demonstrate(s) scattered fibroglandular densities. BI-RADS CATEGORY: (0) - 0 Ultrasound [id number] Immediate follow-up LATERALITY: (B)
== END 2022-01-21 12:57 | disposition home or self-care (01) ==
LOC: DI 12:56
PROVIDERS: ATTEND Physician Assistant
DX: N64.59 Other signs and symptoms in breast (principal)

== ENCOUNTER 2022-01-24 09:19 | Outpatient (CLI) | payer MEDICARE, OTHER | END 2022-01-24 09:20 | disposition home or self-care (01) | LOC: RT 09:19 | PROVIDERS: ATTEND Physician Assistant | DX: R06.02 Shortness of breath (principal); R06.2 Wheezing | CPT/HCPCS: 94010; 94729 ==

== ENCOUNTER 2022-02-25 13:16 | Outpatient (CLI) | payer MEDICARE, OTHER ==
--- NOTE | 2022-02-25 16:57 | CT Report ---
PROCEDURE: CHEST WO INDICATIONS: SHORTNESS OF BREATH TECHNIQUE: Noncontrast 1mm axial images were acquired from the pulmonary apices to the posterior costophrenic an gles. Axial 5 mm soft tissue kernel reconstructions were performed as well as 8 mm axial MIP and cor onal and sagittal 5 mm reformations. For radiation dose reduction, the following was used: automate d exposure control, adjustment of mA and/or kV according to patient size. COMPARISON: Chest x-ray 09/23/2021 FINDINGS: Image quality: Excellent. Lungs and pleura: No acute air space opacities. No pleural effusions or pneumothorax. Central and peripheral airways are patent and normal in caliber. Mediastinum: Heart size is normal. No pericardial effusion. No mediastinal adenopathy by size crit eria. Thoracic aorta and central pulmonary arteries are normal in size. Esophagus is normal in zaid kerry. No hiatal hernia. Bones and chest wall: No suspicious bony lesions. No vertebral body compression fractures. No axil erum or supraclavicular adenopathy by size criteria. The thyroid is normal in size and there are no incidental findings. Abdomen: Visualized upper abdominal solid organs and bowel loops appear normal in the absence of con trast. IMPRESSION: No effusions or consolidations. Lungs are clear. CLINICAL RECOMMENDATION STATEMENTS: In patients <35 years with an ITN detected on CT, MRI, or extrathyroidal ultrasound, the Committee re commends further evaluation with dedicated thyroid ultrasound if the nodule is "e1 cm and has no susp icious imaging features, and if the patient has normal life expectancy. In patients "e35 years with an ITN detected on CT, MRI, or extrathyroidal ultrasound, the Committee r ecommends further evaluation with dedicated thyroid ultrasound if the nodule is "e1.5 cm and has no s uspicious imaging features, and if the patient has normal life expectancy. (ACR, 2014) Reviewed by: Nora Can MD on 02/25/2022 4:55 PM PST Approved by: Nora Can MD on 02/25/2022 4:55 PM PST Station ID: [id number]
== END 2022-02-25 13:17 | disposition home or self-care (01) ==
LOC: DI 13:16
PROVIDERS: ATTEND Physician Assistant
DX: R06.02 Shortness of breath (principal)

== ENCOUNTER 2022-08-18 11:33 | Outpatient (CLI) | payer MEDICARE, OTHER ==
[2022-08-18 11:55] LABS: BASOPHILS % (AUTO) 0.7 %; EOSINOPHILS # (AUTO) 0.1 10^3/uL (0.0-0.7); EOSINOPHILS % (AUTO) 2.2 %; HCT - HEMATOCRIT 42.8 % (37.0-47.0); HGB - HEMOGLOBIN 13.8 g/dL (12.0-16.0); LYMPHOCYTES # (AUTO) 1.8 10^3/uL (1.5-3.5); LYMPHOCYTES % (AUTO) 31.9 %; MEAN CORPUSCULAR HEMOGLOBIN 32.2 pg (27.0-31.0); MEAN CORPUSCULAR HGB CONC 32.2 g/dL (32.0-36.0); MEAN PLATELET VOLUME 9.9 fL (7.9-10.8); MONOCYTES # (AUTO) 0.5 10^3/uL (0.0-1.0); MONOCYTES % (AUTO) 9.5 %; NEUTROPHILS # (AUTO) 3.1 10^3/uL (1.5-6.6); NEUTROPHILS % (AUTO) 55.3 %; PLT - PLATELET COUNT 253 10^3/uL (130-450); RED BLOOD COUNT 4.28 10^6/uL (4.20-5.40); RED CELL DISTRIBUTION WIDTH 13.6 % (12.0-15.0); WHITE BLOOD COUNT 5.6 x10^3/uL (4.8-10.8)
[2022-08-18 14:04] LABS: ALBUMIN 4.3 g/dL (3.2-5.5); ALBUMIN/GLOBULIN RATIO 1.2 (1.0-2.2); ALKALINE PHOSPHATASE 62 IU/L (42-121); ALT ALANINE AMINOTRANSFERASE 22 IU/L (10-60); AST ASPARTATE AMINOTRANSFERASE 24 IU/L (10-42); BILIRUBIN,TOTAL 0.8 mg/dL (0.2-1.0); BUN - BLOOD UREA NITROGEN 20 mg/dL (6-20); CALCIUM 9.1 mg/dL (8.5-10.3); CARBON DIOXIDE - CO2 27 mmol/L (21-32); CHLORIDE 106 mmol/L (101-111); CHOL/HDL RATIO 2.8 (<4.4); CHOLESTEROL 218 mg/dL; CREATININE 0.9 mg/dL (0.4-1.0); GFR - MDRD 60 (>89); GLUCOSE 127 mg/dL (70-100); HDL CHOLESTEROL 78 mg/dL; LDL CHOLESTEROL,CALCULATED 123 mg/dL; LDL/HDL RATIO 1.6 (<4.4); POTASSIUM 4.2 mmol/L (3.5-5.0); SODIUM 139 mmol/L (135-145); TOTAL PROTEIN 7.8 g/dL (6.7-8.2); TRIGLYCERIDES 86 mg/dL; VLDL CHOLESTEROL 17 mg/dL
[2022-08-19 10:46] LABS: ESTIMATED AVERAGE GLUCOSE 117 mg/dL (70-100); HEMOGLOBIN A1c% 5.7 % (4.27-6.07)
== END 2022-08-18 11:34 | disposition home or self-care (01) ==
LOC: LAB 11:33
PROVIDERS: ATTEND Physician Assistant Medical
DX: E78.5 Hyperlipidemia, unspecified (principal); R60.9 Edema, unspecified; R73.01 Impaired fasting glucose
CPT/HCPCS: 36415; 80053; 80061; 83036; 83721; 83880; 85025

== ENCOUNTER 2022-08-18 14:19 | Outpatient (CLI) | payer MEDICARE, OTHER ==
--- NOTE | 2022-08-18 15:12 | Ultrasound Report ---
PROCEDURE: Duplex Ext Veins Bilateral INDICATIONS: Ute Wiseman PA-C TECHNIQUE: Real-time imaging, as well as color and pulse Doppler interrogation, were performed of the deep veins of both legs from the inguinal ligament to the popliteal fossa. COMPARISON: None. FINDINGS: Right: The deep veins are normally compressible, and free of intraluminal thrombus. Color and pulse Doppler demonstrate normal phasic intravascular flow. There is normal augmentation response to dista l compression maneuver. Right: The deep veins are normally compressible, and free of intraluminal thrombus. Color and pulse Doppler demonstrate normal phasic intravascular flow. There is normal augmentation response to dista l compression maneuver. IMPRESSION: No DVT in lower extremities. Reviewed by: Edenilson Amaya MD on 08/18/2022 3:10 PM PDT Approved by: Edenilson Amaya MD on 08/18/2022 3:10 PM PDT Station ID: [id number]
== END 2022-08-18 14:20 | disposition home or self-care (01) ==
LOC: DI 14:19
PROVIDERS: ATTEND Physician Assistant Medical
DX: R60.9 Edema, unspecified (principal); E78.5 Hyperlipidemia, unspecified; R73.01 Impaired fasting glucose
CPT/HCPCS: 36415; 80053; 80061; 83036; 83721; 83880; 85025; 93970

== ENCOUNTER 2022-11-10 12:27 | Outpatient (CLI) | payer MEDICARE, OTHER ==
--- NOTE | 2022-11-10 15:26 | DEXA Report ---
PROCEDURE: Dexa Spine and/or Hip INDICATIONS: POST MENOPAUSAL TECHNIQUE: Dual energy x-ray absorptiometry (DXA) was performed on a [employer] System. Regions measur ed are the AP Spine, femoral neck, and if needed forearm. COMPARISON: 06/20/2020 FINDINGS: Lumbar Spine: Bone Mineral Density 1.129 g/cm/cm,T score -0.4. Normal, change from previous 2.7%, significant Left Femoral Neck: Bone Mineral Density 0.822 g/cm/cm, T score -1.6. Osteopenia Left Hip: Bone Mineral Density 0.876 g/cm/cm,T score -1.0. Normal, change from previous -3.3% (T score greater or equal to -1.0: NORMAL) (T score from -1.1 to -2.4: OSTEOPENIA) (T score less than or equal to -2.5 to: OSTEOPOROSIS) Impression: By WHO criteria, this patient has low bone density (osteopenia). Decrease in left hip bone mineral density, likely accurate and significant interval increase in lumba r spine bone mineral density. These changes are likely secondary to sclerotic degenerative change in the lumbar spine. Patients with diagnosis of osteoporosis or osteopenia should have regular bone mineral density assess ment. For those eligible for Medicare, routine testing is allowed once every 2 years. Testing frequ ency can be increased for patients who have rapidly progressing disease or for those who are receivin g medical therapy to restore bone mass. Reviewed by: Tracy Powell MD on 11/10/2022 3:25 PM PDT Approved by: Tracy Powell MD on 11/10/2022 3:25 PM PDT Station ID: [id number]
== END 2022-11-10 12:28 | disposition home or self-care (01) ==
LOC: DI 12:27
PROVIDERS: ATTEND Physician Assistant Medical
DX: Z78.0 Asymptomatic menopausal state (principal); M85.88 Other specified disorders of bone density and structure, other site

== ENCOUNTER 2023-04-03 10:14 | Outpatient (CLI) | payer MEDICARE, OTHER ==
[2023-04-03 10:43] LABS: ALBUMIN 4.1 g/dL (3.2-5.5); ALBUMIN/GLOBULIN RATIO 1.3 (1.0-2.2); BILIRUBIN,TOTAL 0.7 mg/dL (0.2-1.0); CALCIUM 9.4 mg/dL (8.5-10.3); CREATININE 0.9 mg/dL (0.6-1.3); POTASSIUM 4.1 mmol/L (3.5-4.5); TOTAL PROTEIN 7.2 g/dL (6.4-8.9)
[2023-04-03 11:05] LABS: ESTIMATED AVERAGE GLUCOSE 111 mg/dL (70-100); HEMOGLOBIN A1c% 5.5 % (4.27-6.07)
== END 2023-04-03 10:15 | disposition home or self-care (01) ==
LOC: LAB 10:14
PROVIDERS: ATTEND Physician Assistant Medical
DX: R73.01 Impaired fasting glucose (principal)
CPT/HCPCS: 36415; 80053; 83036

== ENCOUNTER 2023-04-18 13:46 | Outpatient (CLI) | payer MEDICARE, OTHER ==
--- NOTE | 2023-04-21 14:01 | MRI Report ---
PROCEDURE: LUMBAR SPINE WO INDICATIONS: LUMBAR RADICULOPATHY TECHNIQUE: Noncontrast sagittal T1 spin echo and T2 fast echo, sagittal STIR, axial T1 and T2 fast spin echo thr ough the lumbar spine. In cases with scoliosis, additional coronal T2 fast spin echo may be performe d. COMPARISON: Correlation is made with lumbar spine plain films, 03/05/[address], 09/21 FINDINGS: Image quality: Diagnostic, with note made of motion artifact. Alignment and Curvature: There is minimal anterolisthesis seen at the L3-L4 level. Bone Marrow: Marrow is of normal overall signal. No acute vertebral body compression fractures. Spinal Cord: Conus medullaris terminates at the L1-L2 level. Visualized cord demonstrates normal si gnal and size. Paraspinous Soft Tissues: No paravertebral masses. Water signal left renal cysts are seen. Incident al note is made of a circumaortic left renal vein. T12-L1: Normal in appearance. L1-L2: No significant abnormality is seen. L2-L3: The disc height is well-preserved. There is loss of disc signal seen. Mild disc bulge is se en, with a mild central disc protrusion. Mild to moderate facet hypertrophy is seen. Associated hyper trophy of the ligamentum flavum can be seen. Mild bilateral neural foraminal narrowing is seen. M oderate central canal narrowing is seen. L3-L4: Moderate loss of disc height and signal are seen. Reactive marrow endplate changes are seen, which demonstrate mixed signal and are attributed to a combination of edema and fatty metaplasia (Mo dic type I and Modic type II changes). Moderate disc bulge is seen, with a central disc protrusion. A t least moderate facet hypertrophy can be seen. Associated hypertrophy of the ligamentum flavum can b e seen. There is mild left-sided and moderate right-sided neuroforaminal narrowing. Moderate central canal narrowing is seen. L4-L5: The disc height is well-preserved. There is loss of disc signal seen. Mild to moderate disc bulge is seen. Prominent facet hypertrophy is seen. Mild to moderate bilateral neuroforaminal narrowi ng can be seen. Moderate central canal narrowing is seen. L5-S1: Mild loss of disc height and disc signal are seen. Reactive marrow endplate changes are seen , which demonstrate mixed signal and are attributed to a combination of edema and fatty metaplasia (M odic type I and Modic type II changes). Mild to moderate disc bulge is seen, which is eccentric to th e left. Prominent facet hypertrophy is seen. There is mild right-sided and at least moderate left-jayashree ed neuroforaminal narrowing. 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 Reviewed by: Todd Adams MD on 04/21/2023 12:59 PM [place] Approved by: Todd Adams MD on 04/21/2023 12:59 PM [facility] Station ID: [id number]
== END 2023-04-18 13:47 | disposition home or self-care (01) ==
LOC: DI 13:46
PROVIDERS: ATTEND Physician Assistant Medical
DX: M51.26 Other intervertebral disc displacement, lumbar region (principal); M51.36 Other intervertebral disc degeneration, lumbar region; M48.061 Spinal stenosis, lumbar region without neurogenic claudication; M47.816 Spondylosis without myelopathy or radiculopathy, lumbar region; M51.37 Other intervertebral disc degeneration, lumbosacral region; M48.07 Spinal stenosis, lumbosacral region; M47.817 Spondylosis without myelopathy or radiculopathy, lumbosacral region

== ENCOUNTER 2023-05-11 13:52 | Outpatient (CLI) | payer MEDICARE, OTHER ==
--- NOTE | 2023-05-12 11:06 | Mammography Report ---
BILATERAL DIGITAL SCREENING MAMMOGRAM 3D/2D: 05/11/2023 CLINICAL: Routine screening. Comparison is made to exams dated: 01/21/2022 mammogram, 11/16/2020 mammogram, 10/03/2019 mammogram, mammogram, 05/06/2016 mammogram, and 06/17/2017 mammogram - [facility]. There are scattered areas of fibroglandular density in both breasts (category b / 25%-50% glandular t issue). No significant masses, calcifications, or other findings are seen in either breast. There has been no significant interval change. IMPRESSION: NEGATIVE There is no mammographic evidence of malignancy. A 1 year screening mammogram is recommended. Based on the Tyrer Cuzick model (a risk assessment model) the patient's lifetime risk is 0.9% and her 10 year risk is 0.0%. According to the ACR, ACS, and NCCN guidelines, an annual breast MRI exam melina g with mammogram is recommended if the patients lifetime risk is 20% or greater. This exam was interpreted at Station ID: [id number]. NOTE: For mammograms, a report in lay terms will be sent to the patient. Approximately 15% of breast malignancies will not be visualized mammographically. In the management of a palpable breast mass, a negative mammogram must not discourage biopsy of a clinically suspicious lesion. Electronically Signed By: Merlin ledezma/[email or web address]:05/11/2023 18:02:26 ACR BI-RADS Category 1: Negative 3341F PARENCHYMAL PATTERN: (A) - The breast(s) demonstrate(s) scattered fibroglandular densities. BI-RADS CATEGORY: (1) - 1 Mammogram [id number] 1 year screening LATERALITY: (B)
== END 2023-05-11 13:53 | disposition home or self-care (01) ==
LOC: DI 13:52
DX: Z12.31 Encounter for screening mammogram for malignant neoplasm of breast (principal); R92.323 Mammographic fibroglandular density, bilateral breasts

== ENCOUNTER 2023-09-30 09:32 | Outpatient (CLI) | payer MEDICARE, OTHER ==
[2023-09-30 09:46] LABS: BASOPHILS % (AUTO) 0.5 %; EOSINOPHILS # (AUTO) 0.2 10^3/uL (0.0-0.7); EOSINOPHILS % (AUTO) 3.2 %; HGB - HEMOGLOBIN 12.9 g/dL (12.0-16.0); LYMPHOCYTES # (AUTO) 2.3 10^3/uL (1.5-3.5); LYMPHOCYTES % (AUTO) 38.5 %; MEAN CORPUSCULAR HEMOGLOBIN 31.9 pg (27.0-31.0); MEAN CORPUSCULAR HGB CONC 32.3 g/dL (32.0-36.0); MEAN CORPUSCULAR VOLUME 98.8 fL (81.0-99.0); MEAN PLATELET VOLUME 9.7 fL (7.9-10.8); MONOCYTES # (AUTO) 0.6 10^3/uL (0.0-1.0); MONOCYTES % (AUTO) 9.7 %; NEUTROPHILS # (AUTO) 2.8 10^3/uL (1.5-6.6); NEUTROPHILS % (AUTO) 47.9 %; PLT - PLATELET COUNT 240 10^3/uL (130-450); RED BLOOD COUNT 4.05 10^6/uL (4.20-5.40); RED CELL DISTRIBUTION WIDTH 13.8 % (12.0-15.0); WHITE BLOOD COUNT 5.9 x10^3/uL (4.8-10.8)
[2023-09-30 10:00] LABS: ALBUMIN 4.2 g/dL (3.2-5.5); ALBUMIN/GLOBULIN RATIO 1.4 (1.0-2.2); ALKALINE PHOSPHATASE 63 IU/L (42-121); ALT ALANINE AMINOTRANSFERASE 16 IU/L (10-60); AST ASPARTATE AMINOTRANSFERASE 17 IU/L (10-42); BILIRUBIN,TOTAL 0.7 mg/dL (0.2-1.0); BUN - BLOOD UREA NITROGEN 21 mg/dL (6-20); CALCIUM 9.4 mg/dL (8.5-10.3); CARBON DIOXIDE - CO2 30 mmol/L (21-32); CHLORIDE 103 mmol/L (101-111); CHOL/HDL RATIO 2.5 (<4.4); CHOLESTEROL 179 mg/dL; GFR - MDRD 53 (>89); GLUCOSE 108 mg/dL (74-104); HDL CHOLESTEROL 71 mg/dL; LDL CHOLESTEROL,CALCULATED 90 mg/dL; LDL/HDL RATIO 1.3 (<4.4); POTASSIUM 4.4 mmol/L (3.5-4.5); SODIUM 138 mmol/L (135-145); TOTAL PROTEIN 7.3 g/dL (6.4-8.9); TRIGLYCERIDES 88 mg/dL (48-352); VLDL CHOLESTEROL 18 mg/dL
== END 2023-09-30 09:33 | disposition home or self-care (01) ==
LOC: LAB 09:32
PROVIDERS: ATTEND Physician Assistant Medical
DX: E78.5 Hyperlipidemia, unspecified (principal); I10 Essential (primary) hypertension
CPT/HCPCS: 36415; 80053; 80061; 83721; 85025